=== PATIENT | male | born 1970 | race Caucasian/White ===

== ENCOUNTER 2019-06-27 23:44 | Emergency (ER) | payer OTHER ==
--- NOTE | 2019-06-27 23:56 | PHYS DOC ---
Past History Past Medical History History of inflammatory bowel disorder-colitis/Crohn's Smoking: Chew Adult General Chief Complaint Chief Complaint: ".. I ve had senstive stomach.. seem get stomach stuff....but god osorio... I hurting bad tonight.. I may be ate some bad hamburger.. y ... I have not been able to eat any thing today.. damn I feel completely... backed up.. not pooped ... sincce yesteray.. God osorio it hurts .. more down here on Lt.." HPI HPI Patient is a 49 year old male who presents with complaints of generalized abd. pain. Patient states symptoms generalized abdomen pain and nausea started yesterday. Patient does have a history of irritable bowel/stomach issues in the past. Has been told he might have colitis or Crohn's. Patient does not take any meds for these conditions. No recent travel. Has planned travel to [facility] in next couple days... No one else in the family unit are sick. Patient denies any history of dark or tarry stools. Patient denies illicit drug use or ex cessive alcohol use yesterday. Patient has not had any exposure to animals such as birds, reptiles etc. Patient rates his pain as 10 out of 10. Nothing he does seems to make the pain better. Movement makes the pain worse. Patient reportedly has had: Colonoscopy in the past by Dr. El. Advised he had a inflammatory bowel disorder. Patient however did not continue taking meds for the inflammatory bowel disorder. Review of old CTs apparently did have CT of abdomen film was in 02/03/2007 and 01/20/2010 each suggestive of inflammatory bowel disorder. Patient does chew tobacco. Review of Systems Review of Systems Constitutional: Denies fever or chills [] Eyes: Denies change in visual acuity, redness, or eye pain [] HENT: Denies nasal congestion or sore throat [] Respiratory: Denies cough or shortness of breath [] Cardiovascular: No additional information not addressed in HPI [] GI: Complaints of generalized abdominal pain, nausea. Denies, vomiting, bloody stools or diarrhea . Patient []states he feels constipated. : Denies dysuria or hematuria [] Musculoskeletal: Denies back pain or joint pain [] Integument: Denies rash or skin lesions [] Neurologic: Denies headache, focal weakness or sensory changes [] Endocrine: Denies polyuria or polydipsia [] All other systems were reviewed and found to be within normal limits, except as documented in this note. Family History Family History Noncontributory Current Medications Current Medications See nursing for home medications Allergies Allergies No known drug allergies Physical Exam Physical Exam Constitutional: Well developed, well nourished, in acute distress, non-toxic appearance. Rates pain as 10/10 HENT: Normocephalic, atraumatic, bilateral external ears normal, oropharynx moist, no oral exudates, nose normal. [] Eyes: PERRLA, EOMI, conjunctiva normal, no discharge. [] Neck: Normal range of motion, no tenderness, supple, no stridor. [] Cardiovascular: Tachycardia Heart rate regular rhythm, no murmur [] Lungs & Thorax: Bilateral breath sounds equal at apex on auscultation [] Abdomen: Bowel sounds hyperactive, soft, generalized tenderness, no masses, no pulsatile masses. Distended and tympanic. Refuses rectal at this time. Re bound to Lt lower quadrant. Skin: Warm, diaphoretic, no erythema, no rash. [] Back: No tenderness, no CVA tenderness. [] Extremities: No tenderness, no cyanosis, no clubbing, ROM intact, no edema. + Psoas sign or heel tap on Lt. Neurologic: Alert and oriented X 3, moves all extremities on request has distal sensory, no focal deficits noted. [] Psychologic: Affect anxious, judgement normal, mood normal. [] EKG EKG My interpretation EKG shows sinus tachycardia at 105 bpm. There is some bimodal P-wave's. No findings of a acute STEMI with contralateral changes[] Radiology/Procedures Radiology/Procedures [][address] [address] IMAGING REPORT Signed PATIENT: JAYME JUSTIN BACCOUNT: [id number] : 1970 LOCATION: ER AGE: 49 SEX: M EXAM STATUS: REG ER ORD. PHYSICIAN: JAYME VERDUZCO MD REASON: Severe abdomen pain, nausea, vomiting, chills x 2 days. Hx:Crohns PROCEDURE: CT ABD PELV W/ORAL&IV CONTRAST Study: CT abdomen/pelvis with intravenous contrast Indication: Severe abdominal pain. Nausea, vomiting and chills. Provided history of Crohn's. Comparison: 01/20/2010 Technique: Helical CT imaging performed of the abdomen and pelvis after the intravenous administration of 60 cc Omnipaque 300 contrast. Sagittal and coronal reformats were obtained. One or more of the following individualized dose reduction techniques were utilized for this examination: 1. Automated exposure control 2. Adjustment of the mA and/or kV according to patient size 3. Use of iterative reconstruction technique. Findings: Patulous distal esophagus. Enteric tube tip terminates within the stomach. Low-attenuation of the liver as can be seen with hepatic steatosis. Distended gallbladder without calcified gallstones or findings of cholecystitis. No focal pancreatic abnormality. Unremarkable spleen, adrenal glands and kidneys. Mostly collapsed urinary bladder. Dystrophic mineralization within the prostate. The colon is collapsed distal to the splenic flexure. More proximally, fluid within the colonic lumen and mild distention measuring up to 7.3 cm. No pneumatosis. No focal abnormality of the stomach. Multiple loops of dilated small bowel some of which exhibit wall thickening and abnormal enhancement. There is free abdominal air and a small amount of complex free fluid. Inflammatory changes of the mesentery most notable at the left lower quadrant. The exact cause of this free air is difficult to discern but likely represents bowel perforation presumably within the region of the most pronounced inflammatory changes at the left lower quadrant. No portal venous gas. No localized fluid collection. No acute vascular abnormality. Scattered mildly prominent mesenteric lymph nodes are presumably reactive. Multifocal osseous degenerative changes without acute abnormality. Chronic pars defects at L3 with grade 1 anterolisthesis. Advanced neural foraminal encroachment bilaterally at this level. Impression: 1. Scattered loops of dilated as well as thick walled and hyperenhancing small bowel scattered throughout the abdomen. Small amount of pneumoperitoneum as well as complex free fluid the greatest volume of which is seen within the pelvis. There is no discrete transition point to suggest perforation related to a high-grade mechanical obstruction and spontaneous perforation secondary to active inflammation in the setting of reported Crohn's is the leading consideration. The site of perforation is favored at the left lower quadrant given inflammation greatest at this location. No drainable fluid collection. 2. Additional chronic findings as discussed above. FOR INTERNAL CODING PURPOSES RESULT CODE: (C) The results the study were discussed with Jayme Verduzco by telephone on 06/28/2019 at 0248 hours. Electronically signed by: MARY BURDEN MD (06/28/2019 2:49 AM) [facility] DICTATED AND SIGNED BY: MARY BURDEN MD DATE: 06/28/19 0245 CC: JAYME VERDUZCO MD; OMID HERRERA ~ Course & Med Decision Making Course & Med Decision Making Pertinent Labs and Imaging studies reviewed. (See chart for details) Discussed presentation, testing and tx plan with Dr. Orantes and Dr. Ware. Transfer to [facility]- Dr. Ware service. Consult with Dr. Orantes. Possible GI consult as needed. Has seen Dr. El in the past. Impression: 1. Abdomen Pain 2. Hx. Inflammatory Bowel Disorder 3. Leukocytosis 12.9 4. Thrombocytosis 695 5. Elevated Glucose 1 43 6. Elevated Creat. 1.2 7. Lactic Acid 3.1- 4.9 8. Ileus- ? 9. Possible left lower quadrant bowel perforation- site of greatest inflammation [] Dragon Disclaimer Dragon Disclaimer This electronic medical record was generated, in whole or in part, using a voice recognition dictation system. Departure Departure: Disposition: 01 HOME/RESIDENCE PRIOR TO ADM Condition: STABLE Referrals: OMID HERRERA (PCP) Dragon Disclaimer This chart was dictated in whole or in part using Voice Recognition software in a busy, high-work load, and often noisy Emergency Department environment. It may contain unintended and wholly unrecognized errors or omissions. Dragon Disclaimer This chart was dictated in whole or in part using Voice Recognition software in a busy, high-work load, and often noisy Emergency Department environment. It may contain unintended and wholly unrecognized errors or omissions. Dragon Disclaimer This chart was dictated in whole or in part using Voice Recognition software in a busy, high-work load, and often noisy Emergency Department environment. It may contain unintended and wholly unrecognized errors or omissions. JAYME VERDUZCO MD Jun 27, 2019 23:56
[2019-06-27] MEDS ORDERED: MORPHINE SULFATE 10 MG/ML SYRINGE. ONE (23:59)
[2019-06-28] MEDS ORDERED: CONTRAST GIVEN MC PRN (00:15)
[2019-06-28] MEDS ORDERED: MORPHINE SULFATE 10 MG/ML SYRINGE. SQ ONE ×2 (00:30→03:30)
[2019-06-28] MEDS ORDERED: ONDANSETRON PF 4 MG/2 ML VIAL. IVP ONE (00:30)
[2019-06-28] MEDS ORDERED: IOHEXOL 300 MG/ML 75 ML VIAL. IV ONE (00:30)
[2019-06-28] MEDS ORDERED: IV RINGERS SOLUTION,LACTATED 1,000 ML IV SCH (00:30)
[2019-06-28] MEDS ORDERED: IOHEXOL 240 MG/ML 50ML VIAL. PO ONE (00:30)
[2019-06-28] MEDS ORDERED: FAMOTIDINE 20 MG/2 ML VIAL IVP ONE (00:30)
[2019-06-28] MEDS ORDERED: LIDOCAINE 1% Multi-Dose 20 ML VIAL. ONE (00:48)
[2019-06-28 01:10] LABS: BASO % 0 % (0-3); EOS % 0 % (0-3); HEMATOCRIT 43.4 % (39.0-53.0); HEMOGLOBIN 14.4 g/dL (13.0-17.5); LYMPH % 8 % (24-48); MEAN CORPUSCULAR HEMOGLOBIN 27 pg (25-35); MEAN CORPUSCULAR HGB CONC 33 g/dL (31-37); MEAN CORPUSCULAR VOLUME 82 fL (79-100); MONO # 0.7 x10^3/uL (0.0-1.1); MONO % 6 % (0-9); NEUT # 11.1 x10^3uL (1.8-7.7); NEUT % 86 % (31-73); PLATELET COUNT 695 x10^3/uL (140-400); RED BLOOD COUNT 5.28 x10^6/uL (4.30-5.70); RED CELL DISTRIBUTION WIDTH 14.4 % (11.5-14.5); WHITE BLOOD COUNT 12.9 x10^3/uL (4.0-11.0)
[2019-06-28 01:17] LABS: CALCIUM 9.6 mg/dL (8.5-10.1); CREATININE 1.7 mg/dL (0.7-1.3); GFR 42.9; POTASSIUM 4.3 mmol/L (3.5-5.1)
[2019-06-28 01:29] LABS: ALBUMIN 3.3 g/dL (3.4-5.0); DIRECT BILIRUBIN 0.3 mg/dL (0.0-0.2); TOTAL BILIRUBIN 0.8 mg/dL (0.2-1.0); TOTAL PROTEIN 7.5 g/dL (6.4-8.2)
[2019-06-28] MEDS ORDERED: IV NORMAL SALINE 50ML 50 ML ONE (01:52)
[2019-06-28] MEDS ORDERED: cefTRIAXone SODIUM 1 GM VIAL ONE (01:53)
[2019-06-28] MEDS ORDERED: IV RINGERS SOLUTION,LACTATED 1,000 ML IV ONE ×3 (02:00→05:00)
[2019-06-28 02:05] LABS: SEDIMENTATION RATE 21 (0-15)
--- NOTE | 2019-06-28 02:53 | RAD ---
Study: CT abdomen/pelvis with intravenous contrast Indication: Severe abdominal pain. Nausea, vomiting and chills. Provided history of Crohn's. Comparison: 01/20/2010 Technique: Helical CT imaging performed of the abdomen and pelvis after the intravenous administration of 60 cc Omnipaque 300 contrast. Sagittal and coronal reformats were obtained. One or more of the following individualized dose reduction techniques were utilized for this examination: 1. Automated exposure control 2. Adjustment of the mA and/or kV according to patient size 3. Use of iterative reconstruction technique. Findings: Patulous distal esophagus. Enteric tube tip terminates within the stomach. Low-attenuation of the liver as can be seen with hepatic steatosis. Distended gallbladder without calcified gallstones or findings of cholecystitis. No focal pancreatic abnormality. Unremarkable spleen, adrenal glands and kidneys. Mostly collapsed urinary bladder. Dystrophic mineralization within the prostate. The colon is collapsed distal to the splenic flexure. More proximally, fluid within the colonic lumen and mild distention measuring up to 7.3 cm. No pneumatosis. No focal abnormality of the stomach. Multiple loops of dilated small bowel some of which exhibit wall thickening and abnormal enhancement. There is free abdominal air and a small amount of complex free fluid. Inflammatory changes of the mesentery most notable at the left lower quadrant. The exact cause of this free air is difficult to discern but likely represents bowel perforation presumably within the region of the most pronounced inflammatory changes at the left lower quadrant. No portal venous gas. No localized fluid collection. No acute vascular abnormality. Scattered mildly prominent mesenteric lymph nodes are presumably reactive. Multifocal osseous degenerative changes without acute abnormality. Chronic pars defects at L3 with grade 1 anterolisthesis. Advanced neural foraminal encroachment bilaterally at this level. Impression: 1. Scattered loops of dilated as well as thick walled and hyperenhancing small bowel scattered throughout the abdomen. Small amount of pneumoperitoneum as well as complex free fluid the greatest volume of which is seen within the pelvis. There is no discrete transition point to suggest perforation related to a high-grade mechanical obstruction and spontaneous perforation secondary to active inflammation in the setting of reported Crohn's is the leading consideration. The site of perforation is favored at the left lower quadrant given inflammation greatest at this location. No drainable fluid collection. 2. Additional chronic findings as discussed above. FOR INTERNAL CODING PURPOSES RESULT CODE: (C) The results the study were discussed with Jayme Verduzco by telephone on 06/28/2019 at 0248 hours. Electronically signed by: MARY BURDEN MD (06/28/2019 2:49 AM) [id number]
[2019-06-28 04:20] VITALS: BP 112/64
--- NOTE | 2019-06-28 05:42 | EKG ---
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
--- NOTE | 2019-06-28 07:40 | RAD ---
KUB History: Nasogastric tube placement Comparison: None. Findings: AP portable view centered upon the inferior chest and superior abdomen is submitted. There is enteric catheter with the tip terminating in the region of stomach. Impression: 1. Enteric catheter tip terminates in the region of stomach. Electronically signed by: Gio Vyas MD (06/28/2019 7:37 AM) [facility]
--- NOTE | 2019-06-28 07:48 | RAD ---
ACUTE ABDOMEN SERIES History: Severe abdominal pain, nausea and vomiting, chills for 2 day Comparison: June 28, 2019 radiographs and chest radiograph May 13, 2015 Findings: Single view of the chest and single supine and single upright views of the abdomen are submitted. Previously seen anterior catheter on a study which was timed at 1:10 AM is not seen on this exam timed at 1:28 AM. There are gas dilated segments of small bowel with air-fluid levels, paucity of gas in the colon. No free air is identified. There is no lobar consolidation or significant pleural fluid. Impression: 1. There are gas dilated segments of small bowel with air-fluid levels concerning for small bowel obstruction. The enteric catheter demonstrated on the exam timed earlier is not seen, correlation with presence of catheter advised. Electronically signed by: Gio Vyas MD (06/28/2019 7:45 AM) [facility]
== END 2019-06-28 04:20 | disposition home or self-care (01) ==
LOC: ER 23:44
DX: R10.84 Generalized abdominal pain (principal); D72.829 Elevated white blood cell count, unspecified; R73.9 Hyperglycemia, unspecified; R79.89 Other specified abnormal findings of blood chemistry; D47.3 Essential (hemorrhagic) thrombocythemia; F17.220 Nicotine dependence, chewing tobacco, uncomplicated
CPT/HCPCS: 36415; 74018; 74022; 74177; 80048; 80076; 82150; 82550; 83605; 83690; 84484; 85025; 85610; 85651; 85730; 87040; 93005; 96365; 96367; 96372; 96374; 96375; 96376; 99285; J0696; J2270; J2405; J3010; J3490; J7120; Q9966; Q9967; 94640